=== PATIENT | female | born 1975 | race Caucasian/White ===

== ENCOUNTER 2024-02-23 17:09 | Emergency (ER) | payer BC, SELFPAY ==
[2024-02-23] VITALS (8 sets, daily range): BP systolic 146–184; BP diastolic 57–110; PULSE 66–81; BMI 36.7
[2024-02-23 17:56] LABS: % Basophils 0.6 % (0-2); % Eosinophils 1.5 % (0-6); % Immature Granulocytes 0.2 % (0-0.5); % Lymphocytes 30.2 % (20.5-51.1); % Monocytes 7.2 % (1.7-9.3); % Neutrophils 60.3 % (42.2-75.2); Absolute Basophils 0.1 10^3/uL (0-0.2); Absolute Eosinophils 0.1 10^3/uL (0-0.7); Absolute Lymphocytes 2.4 10^3/uL (1.2-3.4); Absolute Monocytes 0.6 10^3/uL (0.1-0.6); Absolute Neutrophils 4.9 10^3/uL (1.4-6.5); Hematocrit 40.9 % (37.0-47.0); Hemoglobin 14.1 g/dL (12.0-16.0); Mean Corp Hgb Conc. 34.5 g/dL (33.0-37.0); Mean Corpuscular Hgb 29.1 pg (27.0-31.0); Mean Corpuscular Volume 84.5 fL (81.0-99.0); Mean Platelet Volume 8.8 fL (7.4-10.4); Nucleated Red Blood Cells % 0 %; Platelet Count 312 10^3/uL (130-400); Red Blood Cell Count 4.84 10^6/uL (4.20-5.40); Red Cell Dist. Width 12.4 % (11.5-14.5); White Blood Cell Count 8.1 10^3/uL (4.8-10.8)
[2024-02-23 18:07] LABS: ALT (SGPT) 25 U/L (0-35); AST (SGOT) 25 U/L (14-36); Albumin 4.9 g/dl (3.5-5.0); Alkaline Phosphatase 80 U/L (38-126); Blood Urea Nitrogen 17 mg/dl (7-17); Calcium 10.3 mg/dl (8.4-10.2); Carbon Dioxide 30 mmol/L (22-30); Chloride 101 mmol/L (98-107); Glucose 89 mg/dl (70-99); Potassium 4.5 mmol/L (3.5-5.1); Sodium 143 mmol/L (135-145); Total Bilirubin 0.6 mg/dl (0.2-1.3); Total Protein 7.7 g/dl (6.3-8.2); eGFR > 60.00
[2024-02-23 18:18] LABS: Troponin I < 0.012 ng/ml
--- NOTE | 2024-02-23 20:42 | ED.GENMED ---
History of Present Illness
General
Chief Complaint: Dizziness
Source: patient
Time Seen by Provider: 02/23/24 20:15
History of Present Illness
History of Present Illness:
48yoF with a history of migraines, anxiety, and depression presenting for evaluation of dizziness. Patient had a stomach bug last week after eating lunch at a restaurant. She had diarrhea at that time which has since resolved. Patient continues
to feel dizzy. She describes this as lightheadedness. Dizziness is worse with position changes and standing. She also reports nausea but denies any vomiting. She is able to tolerate p.o. fluids and is eating sporadically. She has Zofran at home
which she has been using with some improvement. She also reports feeling hot and cold but denies any fevers. She was seen at urgent care prior to arrival and was sent to the ED for evaluation. She denies any syncope, vertiginous symptoms, chest
pain.
Past History
Past History
ED Past Medical History: None
ED Past Surgical History: Gynecological and Orthopedic
Social History
Tobacco: Non-smoker
Alcohol: None
Drug: None
Personal:
Living: with family
Employment: Employed
Family History
Family History: Other (Noncontributory)
Phy Exam
General Physical Exam
General Presentation: well appearing and no apparent distress
General age: appears stated age
General Skin: warm and dry
General Habitus: normal
General Mental: alert
ENT Exam
ENT Exam: normocephalic
Cardiovascular Exam
Cardiovascular Exam: regular rate/rhythm and no murmur
Pulmonary Exam
Pulmonary Exam: lungs clear, no respiratory distress, no rales, no crackles and no wheezing
[place] Coma Scale
Eye Opening: Spontaneous
Verbal Response: Oriented
Motor Response: Obeys Commands
GCS Total Score: 15
Skin Exam
Skin Exam: normal color and warm/dry
Psychiatric Exam
Psychiatric Exam: normal mood/affect
Course
Orders/Labs/Results
Orders:
Orders
02/23/24 17:33
Electrocardiogram (*1) Urgent
Reason for Study: Hypertension, Benign
EKG- Treatment ONCE
02/23/24 17:43
Complete Blood Count/With Diff Urgent
02/23/24 17:44
Comprehensive Metabolic Panel Urgent
Troponin I Urgent
02/23/24 20:40
Orthostatic VS- Treatment ONCE
0.9% Sodium Chloride 500 ml [Nss] 500 ml IV BOLUS
Ondansetron Injectable [Zofran] 4 mg IV NOW STA
02/23/24 20:45
Cardiac Monitoring- Treatment ONCE
Abnormal Lab Results
02/23/24
17:44
Calcium 10.3 H mg/dl
(8.4-10.2)
02/23/24 17:43
02/23/24 17:44
Vital Signs
Initial and Last Documented VS:
Initial Vital Signs
Temp Pulse Resp BP Pulse Ox
98.0 F 70 16 180/110 98
02/23/24 17:30 02/23/24 17:30 02/23/24 17:30 02/23/24 17:30 02/23/24 17:30
Last Documented Vital Signs
Temp Pulse Resp BP Pulse Ox
98.0 F 68 21 149/91 100
02/23/24 17:30 02/23/24 22:00 02/23/24 21:34 02/23/24 21:35 02/23/24 19:12
MDM/Problems Addressed
Differential Diagnosis Includes:
48yoF here with nausea and lightheadedness since having a stomach bug last week. Sent here by urgent care. No vertiginous symptoms or chest pain. She is hypertensive in triage with otherwise normal vital signs. She is well appearing in no distress.
Exam is reassuring. Differential diagnosis includes but is not limited to: dehydration, orthostatic hypotension, less likely cardiac
Initial ED plan: Cardiac labs and EKG obtained in triage. EKG shows NSR without ischemic changes and troponin WNL. Hemoglobin and glucose normal. Will check orthostatic vital signs and place on threat monitoring analyst. IV Zofran and fluid bolus for
symptoms.
*EKG
Interpreted by ED Provider?: Yes
EKG Intrepretation Date: 02/23/24
Heart Rate: 63
Rate: normal
Rhythm: sinus
[place]: normal axis
Interval: normal interval
QRS Pattern: right bundle branch block (incomplete)
Ischemia: other (Nonspecific T wave changes in V5 and V6. No prior EKGs to compare to.)
*Critical Care Note
Total Time (30-74mins, 75-104mins- exclusive of procedures): Not Applicable
Update Note
Update Note:
Orthostatic vital signs normal. No telemetry events during ED stay. She is stable for discharge. Refill provided for Zofran. Advised close f/u with PCP. ED return precautions discussed. She expressed understanding and is agreeable to plan. She was
discharged in stable condition.
ED Attending Note
-
Portions of this chart may have been created with voice recognition software.� Occasional wrong word or��sound alike� substitutions may have occurred due to the inherent limitations of voice recognition software.
Discharge Plan
Departure
Patient Disposition: Home (Routine Discharge)
Date of Disposition: 02/23/24
Time of Disposition: 22:05
Patient with high blood pressure during this ER visit?: Yes
Discharge Problem:
Lightheadedness, Nausea
Prescriptions:
New
ondansetron 4 mg tablet,disintegrating
4 mg PO Q6H PRN (Reason: nausea and vomiting) Qty: 20 0RF
No Action
bupropion HCl 300 MG tablet extended release 24 hr
300 mg PO HS
Acidophilus 1 CAP capsule
1 cap PO HS
cyanocobalamin (vitamin B-12) 1,000 mcg Tablet
1,000 mcg PO DAILY
lithium carbonate 300 mg Tablet Extended Release
300 mg PO HS
lamotrigine 25 mg Tablet
50 mg PO HS
gabapentin 100 mg Capsule
200 mg PO TID
ondansetron 4 mg Tablet,Disintegrating
4 mg PO Q8HPRN PRN (Reason: nausea/vomiting)
loratadine 10 mg Tablet
10 mg PO HS
magnesium 200 mg Tablet
200 mg PO HS
duloxetine 20 mg Capsule,Delayed Release(Dr/Ec)
20 mg PO HS
[place] 3-6-9 1,200 mg Capsule
1 cap PO HS
Referrals:
Brendan Li, DO [Family Provider] -
Activity Restrictions/Additional Instructions:
Take Zofran as needed for nausea. Drink plenty of fluids and rest.
Please call your family doctor tomorrow to schedule a follow-up appointment. Return to the ER with any new or worsening symptoms.
Interventions
Interventions:
*Risk Screen - Suicide Last Done: 02/23/24 17:30
*General Assessment Last Done: 02/23/24 20:51
*Neglect/Abuse Screening Last Done: 02/23/24 17:30
*ED COVID-19 Vaccine History Last Done: 02/23/24 20:51
*Nursing Disposition Last Done: 02/23/24 22:22
ED- Neurological Assessment Last Done: 02/23/24 20:51
ED- Cardiac Assessment Last Done: 02/23/24 21:14
ED Swallowing Screen Last Done: 02/23/24 20:51
Discharge Date and Time
Discharge Date/Time: 02/23/24 22:23
Print Language: SOMALI
[2024-02-23] MEDS: NSS 500 IV (21:03)
[2024-02-23] MEDS: ZOFRAN 4 MG IV (21:03)
== END 2024-02-23 22:23 | disposition home or self-care (01) ==
LOC: EMR 17:09
PROVIDERS: Emergency Medicine; EMERGENCY PHYSICIAN Emergency Medicine; FAMILY PHYSICIAN Internal Medicine
DX: R42 Dizziness and giddiness (principal); R11.0 Nausea; R03.0 Elevated blood-pressure reading, without diagnosis of hypertension
CPT/HCPCS: 96374; 96361; 99284; 80053; 84484; 85025; 93005

== ENCOUNTER 2024-06-08 06:21 | Day surgery (SDC) | payer BC, SELFPAY | END 2024-06-08 11:49 | disposition home or self-care (01) | LOC: GI 06:21 | PROVIDERS: ATTENDING PHYSICIAN Surgery | PROC: 0DBM8ZX Excision of Descending Colon, Via Natural or Artificial Opening Endoscopic, Diagnostic (ICD-10-PCS; 2024-06-08) | DX: Z12.11 Encounter for screening for malignant neoplasm of colon (principal); Z80.0 Family history of malignant neoplasm of digestive organs; D12.4 Benign neoplasm of descending colon; K57.30 Diverticulosis of large intestine without perforation or abscess without bleeding | CPT/HCPCS: 45380; 88305 ==